=== PATIENT | male | born 1955 | race Caucasian/White ===

== ENCOUNTER → 2017-01-05 | Outpatient (CLI) | payer MEDICARE, BC | LOC: OD 12:54 | PROVIDERS: ATTEND Internal Medicine Cardiovascular Disease | DX: I25.10 Atherosclerotic heart disease of native coronary artery without angina pectoris (principal); J43.8 Other emphysema; G47.39 Other sleep apnea; I50.22 Chronic systolic (congestive) heart failure; I25.5 Ischemic cardiomyopathy; Z98.890 Other specified postprocedural states; Z95.1 Presence of aortocoronary bypass graft; Z98.61 Coronary angioplasty status; E78.4 Other hyperlipidemia; Z95.810 Presence of automatic (implantable) cardiac defibrillator; I10 Essential (primary) hypertension; I48.2 Chronic atrial fibrillation | CPT/HCPCS: 71020 ==